=== PATIENT | female | born 1965 | race American Indian/Alaskan Native ===

== ENCOUNTER 2016-12-10 18:28 | Emergency (ER) | payer BC ==
[2016-12-10] MEDS ORDERED: TORADOL IM ONE (20:05)
--- NOTE | 2016-12-10 20:14 | Emergency Department Report ---
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 Elder but does not have an appointment scheduled to December 25. Patient denies fevers/nausea/vomiting/ abdominal pain/recent injury/chest pain, shortness of breath. She denies vaginal bleeding, dysuria. ED Past Medical Hx - Past Medical History Previous Medical History?: Yes Additional medical history: back pain - Surgical History Past Surgical History?: No Additional Surgical History: c section - Social History Smoking Status: Current Every Day Smoker Substance Use Type: None - Medications Home Medications: Home Medications Medication Instructions Recorded Confirmed Last Taken Type Cyclobenzaprine [Flexeril 10mg] 10 mg PO TID PRN #30 tablet 12/11/13 Unknown Rx HYDROcodone/APAP 7.5-325 [[place] 1 each PO Q6HR PRN #20 tablet 12/11/13 Unknown Rx 7.5/325 mg] Ibuprofen [Motrin] 600 mg PO Q8H PRN #50 tablet 12/11/13 Unknown Rx Cyclobenzaprine HCl [Flexeril 5 MG 5 mg PO TID PRN #15 tab 07/01/15 Unknown Rx TAB] traMADol [Ultram 50 MG tab] 50 mg PO Q6HR PRN #20 tablet 07/01/15 Unknown Rx Diazepam 5 mg PO Q8HR #15 tablet 09/17/15 Unknown Rx Naproxen [Naprosyn TAB] 500 mg PO BID #20 tablet 09/17/15 Unknown Rx Diclofenac Potassium 50 mg PO BID #40 tablet 12/10/16 Unknown Rx tiZANidine [Zanaflex] 4 mg PO BID #30 tablet 12/10/16 Unknown Rx ED Review of Systems ROS: Stated complaint: LFT ARM/LEG PN/R UPPER/LOWER BACK Other details as noted in HPI Constitutional: denies: chills, fever Eyes: denies: eye pain, eye discharge, vision change ENT: denies: ear pain, throat pain Respiratory: denies: cough, shortness of breath, wheezing Cardiovascular: denies: chest pain, palpitations Endocrine: no symptoms reported Gastrointestinal: denies: abdominal pain, nausea, diarrhea Genitourinary: denies: urgency, dysuria, discharge Musculoskeletal: denies: back pain, joint swelling, arthralgia Skin: denies: rash, lesions Neurological: denies: headache, weakness, paresthesias Psychiatric: denies: anxiety, depression Hematological/Lymphatic: denies: easy bleeding, easy bruising Physical Exam - Physical Exam Vital Signs: Vital Signs 12/10/16 18:33 Temperature 98.4 F Pulse Rate 72 Respiratory 20 Rate O2 Sat by Pulse 100 Oximetry Physical Exam: GENERAL: Alert and oriented x3, no apparent distress, Normal Gait, atraumatic. HEAD: Head is normocephalic and a-traumatic. EYES: Extra ocular muscles are intact. Pupils are equal, round, and reactive to light and accommodation. NECK: Supple. Non edematous No lymphadenopathy or thyromegaly. No C-spine tenderness LUNGS: Symetrical with respiration, No wheezing, no rales or crackles, CTAB. HEART: S1, S2 present, regular rate and rhythm without murmur, no rubs, no gallops. Non tender to palpation ABDOMEN: No organomegaly was noted,Positive bowel sounds, soft, and non- distended. . Nontender to palpation on all Quadrants, NO CVA tenderness. BACK: full ROM, tenderness to palpation of her right latissimus dorsi muscles. EXTREMITIES/MUSCULOSKELETAL: No cyanosis, clubbing, rash, lesions or edema. Full ROM bilaterally. UE/LE Pulses 2+ bilaterally. LE and UE 5+ strength bilaterally, straight leg raise negative bilaterally. No calf tenderness bilaterally. NEUROLOGIC: The patient is cooperative with no focal neurologic deficits. Cranial nerves II through XII are grossly intact. Normal speech. PSYCHIATRIC: Mood is congruent with affect, denies suicidal or homicidal ideations. SKIN: Warm and dry, No lesions, No ulceration or induration present. ED Course Vital Signs 12/10/16 18:33 Temperature 98.4 F Pulse Rate 72 Respiratory 20 Rate O2 Sat by Pulse 100 Oximetry ED Medical Decision Making - Medical Decision Making This is a 51 year-old female presents to ED with ED course: Patient received Toradol and ED. Urinalysis is ordered. Urinalysis is negative Discussed his findings with patient. Discussed the patient will go home on trial of muscle relaxers and pain medication Discussed the patient and keep her appointment with Dr. Elder. Discussed patient get some rest, monitor blood pressure and discuss blood pressure management with her Dr. Elder. Patient states she does not have a history of blood pressure. Discussed the patient and get appropriate redness use heat pads as needed for back muscles. Patient states she understands instructions and will follow-up Pt is in no acute distress. Vital signs are normal Critical care attestation.: If time is entered above; I have spent that time in minutes in the direct care of this critically ill patient, excluding procedure time. ED Disposition Clinical Impression: Myalgia, Spasm of back muscles Disposition: TO HOME OR SELFCARE Is pt being admited?: No Does the pt Need Aspirin: No Condition: Stable Instructions: Trigger Point Pain (ED), Musculoskeletal Pain (ED), Heat Pack Application (ED) Additional Instructions: No heavy lifting. Follow-up which her primary care physician. Prescriptions: Diclofenac Potassium 50 mg PO BID #40 tablet tiZANidine [Zanaflex] 4 mg PO BID #30 tablet Referrals: PRIMARY CAREMD [Primary Care Provider] - 3-5 Days JOSE ZUNIGA MD [Staff Physician] - 3-5 Days [facility] [Outside] - 3-5 Days [facility] [Outside] - 3-5 Days [facility] [Outside] - 3-5 Days Forms: Work/School Release Form Time of Disposition: 21:45
[2016-12-10 21:06] LABS: Bilirubin,Urine NEG (Negative); Blood,Urine MOD (Negative); Ketones,Urine TR mg/dL (Negative); Leukocyte Esterase,Urine NEG (Negative); Mucus,Urine 3+ /HPF; Nitrite,Urine NEG (Negative); Protein,Urine <15 mg/dL mg/dL (Negative); Urobilinogen,Urine < 2.0 mg/dL (<2.0)
== END 2016-12-10 22:08 | disposition home or self-care (01) ==
LOC: ED 18:28
DX: M62.830 Muscle spasm of back (principal); M79.1 Myalgia; F17.200 Nicotine dependence, unspecified, uncomplicated
CPT/HCPCS: 81001; 96372; 99283; J1885

== ENCOUNTER 2018-01-27 10:34 | Emergency (ER) | payer BC ==
[2018-01-27] MEDS ORDERED: MORPHINE IV ONE (11:17)
[2018-01-27] MEDS ORDERED: ZOFRAN IV ONE (11:17)
[2018-01-27 11:20] VITALS: BP 183/103
[2018-01-27 12:04] LABS: Basophils % (Auto) 0.7 % (0.0-1.8); Eosinophils # (Auto) 0.1 K/mm3 (0.0-0.4); Eosinophils % (Auto) 2.6 % (0.0-4.3); Hematocrit 43.3 % (30.3-42.9); Hemoglobin 14.5 gm/dl (10.1-14.3); Lymphocytes # (Auto) 1.8 K/mm3 (1.2-5.4); Lymphocytes % (Auto) 30.8 % (13.4-35.0); Mean Corpuscular HGB Conc 34 % (30-34); Mean Corpuscular Hemoglobin 31 pg (28-32); Mean Corpuscular Volume 92 fl (79-97); Monocytes # (Auto) 0.4 K/mm3 (0.0-0.8); Monocytes % (Auto) 6.7 % (0.0-7.3); Platelet Count 266 K/mm3 (140-440); Red Blood Count 4.71 M/mm3 (3.65-5.03); Red Cell Distribution Width 12.9 % (13.2-15.2)
[2018-01-27 12:12] LABS: INR 0.95 (0.87-1.13)
[2018-01-27 12:13] LABS: Partial Thromboplastin Time 28.1 Sec. (24.2-36.6)
[2018-01-27 12:23] LABS: Alanine Aminotransferase 8 units/L (7-56); BUN/Creatinine Ratio 25; Blood Urea Nitrogen 15 mg/dL (7-17); Calcium 9.6 mg/dL (8.4-10.2); Hemolysis Index 64
[2018-01-27 12:28] LABS: Bilirubin,Direct < 0.2 mg/dL (0-0.2)
[2018-01-27 12:29] LABS: Creatine Kinase MB < 1.0 ng/mL (0.0-4.0)
--- NOTE | 2018-01-27 15:07 | Emergency Department Report ---
ED General Adult HPI - General Chief complaint: Extremity Injury, Upper Stated complaint: LEFT ARM PAIN Time Seen by Provider: 01/27/18 11:07 Source: patient Mode of arrival: Ambulatory Limitations: No Limitations - History of Present Illness Initial comments: This is a 52-year-old lady that was here at this hospital. She tells me she's had severe right shoulder pain for 4 days. She was seen in the emergency department yesterday. She was given a variety of analgesic/muscle relaxant. She states the pain is really persistent and she has limited mobility of the shoulder. The pain worsens on movement. She's had no fever or chills. She has made an appointment to see Dr. Russell next week. An MRI is contemplated. Review of her x-ray yesterday did reveal likely calcific tendinitis. Certainly rotator cuff injury could not be excluded without an MRI. -: Gradual, days(s) Location: right, upper extremity Radiation: non-radiation Quality: aching Consistency: constant Improves with: none Worsens with: movement Associated Symptoms: denies other symptoms Treatments Prior to Arrival: other (seen in the emergency department yesterday) - Related Data Previous Rx's Medication Instructions Recorded Last Taken Type Cyclobenzaprine [Flexeril 10mg] 10 mg PO TID PRN #30 tablet 12/11/13 Unknown Rx HYDROcodone/APAP 7.5-325 [[place] 1 each PO Q6HR PRN #20 tablet 12/11/13 Unknown Rx 7.5/325 mg] Ibuprofen [Motrin] 600 mg PO Q8H PRN #50 tablet 12/11/13 Unknown Rx Cyclobenzaprine HCl [Flexeril 5 MG 5 mg PO TID PRN #15 tab 07/01/15 Unknown Rx TAB] traMADol [Ultram 50 MG tab] 50 mg PO Q6HR PRN #20 tablet 07/01/15 Unknown Rx Naproxen [Naprosyn TAB] 500 mg PO BID #20 tablet 09/17/15 Unknown Rx diazePAM [Diazepam] 5 mg PO Q8HR #15 tablet 09/17/15 Unknown Rx Diclofenac Potassium 50 mg PO BID #40 tablet 12/10/16 Unknown Rx tiZANidine [Zanaflex] 4 mg PO BID #30 tablet 12/10/16 Unknown Rx Ibuprofen [Motrin] 800 mg PO Q8HR PRN #20 tablet 01/23/18 Unknown Rx methOCARBAMOL [Robaxin TAB] 500 mg PO Q6H PRN #15 tablet 01/23/18 Unknown Rx traMADol [Ultram] 50 mg PO Q6HR PRN #12 tablet 01/23/18 Unknown Rx Allergies Allergy/AdvReac Type Severity Reaction Status Date / Time No Known Allergies Allergy Verified 12/10/16 18:33 ED Review of Systems ROS: Stated complaint: LEFT ARM PAIN Other details as noted in HPI Constitutional: denies: chills, fever Eyes: denies: eye pain, eye discharge, vision change ENT: denies: ear pain, throat pain Respiratory: denies: cough, shortness of breath, wheezing Cardiovascular: denies: chest pain, palpitations Endocrine: no symptoms reported Gastrointestinal: denies: abdominal pain, nausea, diarrhea Genitourinary: denies: urgency, dysuria, discharge Musculoskeletal: as per HPI. denies: back pain, joint swelling Skin: denies: rash, lesions Neurological: denies: headache, weakness, paresthesias Psychiatric: denies: anxiety, depression Hematological/Lymphatic: denies: easy bleeding, easy bruising ED Past Medical Hx - Past Medical History Previous Medical History?: Yes Additional medical history: back pain - Surgical History Past Surgical History?: Yes Additional Surgical History: c section - Social History Smoking Status: Current Every Day Smoker Substance Use Type: Alcohol - Medications Home Medications: Home Medications Medication Instructions Recorded Confirmed Last Taken Type Cyclobenzaprine [Flexeril 10mg] 10 mg PO TID PRN #30 tablet 12/11/13 Unknown Rx HYDROcodone/APAP 7.5-325 [[place] 1 each PO Q6HR PRN #20 tablet 12/11/13 Unknown Rx 7.5/325 mg] Ibuprofen [Motrin] 600 mg PO Q8H PRN #50 tablet 12/11/13 Unknown Rx Cyclobenzaprine HCl [Flexeril 5 MG 5 mg PO TID PRN #15 tab 07/01/15 Unknown Rx TAB] traMADol [Ultram 50 MG tab] 50 mg PO Q6HR PRN #20 tablet 07/01/15 Unknown Rx Naproxen [Naprosyn TAB] 500 mg PO BID #20 tablet 09/17/15 Unknown Rx diazePAM [Diazepam] 5 mg PO Q8HR #15 tablet 09/17/15 Unknown Rx Diclofenac Potassium 50 mg PO BID #40 tablet 12/10/16 Unknown Rx tiZANidine [Zanaflex] 4 mg PO BID #30 tablet 12/10/16 Unknown Rx Ibuprofen [Motrin] 800 mg PO Q8HR PRN #20 tablet 01/23/18 Unknown Rx methOCARBAMOL [Robaxin TAB] 500 mg PO Q6H PRN #15 tablet 01/23/18 Unknown Rx traMADol [Ultram] 50 mg PO Q6HR PRN #12 tablet 01/23/18 Unknown Rx ED Physical Exam - General Limitations: No Limitations General appearance: alert, in no apparent distress - Head Head exam: Present: atraumatic, normocephalic - Eye Eye exam: Present: normal appearance, PERRL, EOMI. Absent: scleral icterus - ENT ENT exam: Present: mucous membranes moist - Neck Neck exam: Present: normal inspection. Absent: tenderness, meningismus - Respiratory Respiratory exam: Present: normal lung sounds bilaterally. Absent: respiratory distress - Cardiovascular Cardiovascular Exam: Present: regular rate, normal rhythm. Absent: systolic murmur, diastolic murmur, rubs, gallop - GI/Abdominal GI/Abdominal exam: Present: soft, rigid, normal bowel sounds. Absent: distended , tenderness, guarding, rebound - Extremities Exam Extremities exam: Present: other (patient has limited movement of her right shoulder it is tender. There is no warmth on palpation of the joint. ) - Back Exam Back exam: Present: normal inspection - Neurological Exam Neurological exam: Present: alert, oriented X3, CN II-XII intact. Absent: motor sensory deficit - Psychiatric Psychiatric exam: Present: normal affect, normal mood - Skin Skin exam: Present: warm, dry, intact, normal color. Absent: rash ED Course Vital Signs 01/27/18 01/27/18 10:43 11:20 Temperature 98.1 F Pulse Rate 104 H 80 Respiratory 18 16 Rate Blood Pressure 190/122 Blood Pressure 183/103 [Left] O2 Sat by Pulse 97 96 Oximetry - Reevaluation(s) Reevaluation #1: I spoke to Dr. Russell. He was kind to agree to see the patient in the office now. 01/27/18 15:07 ED Medical Decision Making - Lab Data Result diagrams: 01/27/18 11:47 01/27/18 11:47 Laboratory Results - last 24 hr 01/27/18 01/27/18 01/27/18 11:47 11:47 11:47 WBC 5.8 RBC 4.71 Hgb 14.5 H Hct 43.3 H MCV 92 MCH 31 MCHC 34 RDW 12.9 L Plt Count 266 Lymph % (Auto) 30.8 [place] % (Auto) 6.7 Eos % (Auto) 2.6 Baso % (Auto) 0.7 Lymph # 1.8 [place] # 0.4 Eos # 0.1 Baso # 0.0 Seg Neutrophils % 59.2 Seg Neutrophils # 3.4 PT 13.1 INR 0.95 APTT 28.1 Sodium 136 L Potassium 4.2 Chloride 95.9 L Carbon Dioxide 24 Anion Gap 20 BUN 15 Creatinine 0.6 L Estimated GFR > 60 BUN/Creatinine Ratio 25 Glucose 80 Lactic Acid Calcium 9.6 Total Bilirubin 0.30 Direct Bilirubin < 0.2 Indirect Bilirubin 0.1 AST 14 ALT 8 Alkaline Phosphatase 91 Total Creatine Kinase 70 CK-MB (CK-2) < 1.0 CK-MB (CK-2) Rel Index 1.4 Total Protein 7.9 Albumin 4.0 Albumin/Globulin Ratio 1.0 01/27/18 11:47 WBC RBC Hgb Hct MCV MCH MCHC RDW Plt Count Lymph % (Auto) [place] % (Auto) Eos % (Auto) Baso % (Auto) Lymph # [place] # Eos # Baso # Seg Neutrophils % Seg Neutrophils # PT INR APTT Sodium Potassium Chloride Carbon Dioxide Anion Gap BUN Creatinine Estimated GFR BUN/Creatinine Ratio Glucose Lactic Acid 0.90 Calcium Total Bilirubin Direct Bilirubin Indirect Bilirubin AST ALT Alkaline Phosphatase Total Creatine Kinase CK-MB (CK-2) CK-MB (CK-2) Rel Index Total Protein Albumin Albumin/Globulin Ratio - Radiology Data Radiology results: report reviewed (previous x-ray report reviewed) Critical care attestation.: If time is entered above; I have spent that time in minutes in the direct care of this critically ill patient, excluding procedure time. ED Disposition Clinical Impression: Calcific tendinitis Disposition: DC- TO HOME OR SELFCARE Is pt being admited?: No Does the pt Need Aspirin: No Condition: Stable Instructions: Tendinitis (ED) Additional Instructions: See Dr. Russell now for further treatment. Referrals: PRIMARY CARE, [Primary Care Provider] - 3-5 Days Time of Disposition: 15:08
== END 2018-01-27 15:17 | disposition home or self-care (01) ==
LOC: ED 10:34 → EEVIPCON 10:34 → ED 15:17
DX: M75.31 Calcific tendinitis of right shoulder (principal); F17.200 Nicotine dependence, unspecified, uncomplicated
CPT/HCPCS: 36415; 80048; 80074; 82140; 82550; 82553; 85025; 85610; 85730; 96374; 96375; 99284; J2270; J2405

== ENCOUNTER 2018-02-12 15:37 | Outpatient (CLI) | payer BC ==
--- NOTE | 2018-02-13 08:06 | Magnetic Resonance Report ---
MRI UPPER EXTREMITY JOINT RIGHT WITHOUT CONTRAST History: Pain in right shoulder. Technique: Multisequence, multiplanar MRI without contrast. Comparison: Right shoulder films dated 01/23/18. Findings: Right shoulder films were consistent with calcific tendinitis of the supraspinatus tendon. MRI demonstrates mild diffuse thickening and increased signal in the supraspinatus tendon consistent with tendinosis. The calcifications are poorly demonstrated on MR. No full-thickness defect is detected. A focal full thickness tear is identified in the infraspinatus tendon which is best demonstrated on coronal T2 fat sat image 7. This defect measures 3-4 mm diameter. The supraspinatus tendon and teres minor tendons are intact. The biceps tendon and its anchor upon the superior labrum is intact. No gross labral defect although arthrogram was not performed. Trace joint effusion and fluid in the sub-deltoid bursa is noted. The bony signal is within normal limits. No evidence for fracture, bone lesion or significant degenerative changes. IMPRESSION: Calcific tendinitis of the distal supraspinatus tendon. Focal full thickness tear in the infraspinatus tendon as described. Trace joint effusion and bursal fluid.
== END 2018-02-12 15:38 | disposition home or self-care (01) ==
LOC: MRI 15:37
PROVIDERS: ATTEND Orthopaedic Surgery
DX: M75.31 Calcific tendinitis of right shoulder (principal); Z87.891 Personal history of nicotine dependence

== ENCOUNTER 2018-11-03 11:05 | Outpatient (CLI) | payer BC ==
[2018-11-03 11:34] LABS: Hematocrit 43.5 % (30.3-42.9); Hemoglobin 14.7 gm/dl (10.1-14.3); Mean Corpuscular HGB Conc 34 % (30-34); Mean Corpuscular Volume 93 fl (79-97); Platelet Count 275 K/mm3 (140-440); Red Blood Count 4.68 M/mm3 (3.65-5.03); Red Cell Distribution Width 13.8 % (13.2-15.2)
[2018-11-03 12:19] LABS: Alanine Aminotransferase 6 units/L (7-56); Albumin 4.4 g/dL (3.9-5); BUN/Creatinine Ratio 27; Blood Urea Nitrogen 19 mg/dL (7-17); Calcium 9.8 mg/dL (8.4-10.2); Chol/HDL Ratio 3.61 %; HDL Cholesterol 59 mg/dL (40-59); Hemolysis Index 1; LDL Cholesterol,Direct 145 mg/dL (50-130)
--- NOTE | 2018-11-03 14:45 | XRay Report ---
LUMBOSACRAL SPINE, FIVE VIEWS: HISTORY: Low back pain. Views of the lumbosacral spine demonstrate normal bony alignment, vertebral height and interspace distances. Oblique views show patent foramina and normal apophyseal joint alignment. IMPRESSION: Lumbar spine within normal limits.
[2018-11-06 11:19] LABS: Vitamin D, 25-OH, D2 <4 ng/mL
== END 2018-11-03 11:06 | disposition home or self-care (01) ==
LOC: LAB 11:05
PROVIDERS: ATTEND Internal Medicine
DX: M54.5 Low back pain (principal); E78.2 Mixed hyperlipidemia; E11.65 Type 2 diabetes mellitus with hyperglycemia; E53.9 Vitamin B deficiency, unspecified; R53.83 Other fatigue
CPT/HCPCS: 36415; 72110; 80053; 80061; 82306; 83036; 84443; 85027

== ENCOUNTER 2019-08-11 19:41 | Emergency (ER) | payer BC ==
[2019-08-11] MEDS ORDERED: IPRATROPIUM/ALBUTEROL SULFATE 3 ML AMPUL.NEB IH ONE (20:15)
--- NOTE | 2019-08-11 20:15 | Emergency Department Report ---
Blank Doc - Documentation Documentation: This is a 54-year-old female that presents with SOB, wheezing, and cough. This initial assessment/diagnostic orders/clinical plan/treatment(s) is/are subject to change based on patient's health status, clinical progression and re- assessment by fellow clinical providers in the ED. Further treatment and workup at subsequent clinical providers discretion. Patient/guardians urged not to elope from the ED as their condition may be serious if not clinically assessed and managed. Initial orders include: 1- Patient sent to [facility] for further evaluation and treatment 2- CXR 3- breathing treatment
--- NOTE | 2019-08-11 20:52 | XRay Report ---
CHEST 2 VIEWS INDICATION / CLINICAL INFORMATION: Dyspnea and wheezing. COMPARISON: Chest radiograph 03/14/2015 FINDINGS: SUPPORT DEVICES: None. HEART / MEDIASTINUM: No significant abnormality. LUNGS / PLEURA: No significant pulmonary or pleural abnormality. No pneumothorax. ADDITIONAL FINDINGS: No significant additional findings. IMPRESSION: No acute finding. Signer Name: Seymour Denise MD Signed: 08/11/2019 8:47 PM Workstation Name: [id number]
[2019-08-11] MEDS ORDERED: predniSONE 50 MG TAB PO STA (22:02)
--- NOTE | 2019-08-11 22:17 | Emergency Department Report ---
ED Asthma HPI - General Chief Complaint: Adult Asthma Stated Complaint: RESPIRATORY PROBLEMS Time Seen by Provider: 08/11/19 20:14 Source: family Mode of arrival: Ambulatory Limitations: No Limitations - History of Present Illness Initial Comments: 54-year-old female sent emerge department complaining of having cough with wheezing and was was worried she may be renetta" as the virus" she wanted to be evaluated reports no hemoptysis no no hematemesis no hematochezia does have cough with wheezing but ran out of her albuterol at home and needs a refill. Complaint: wheezing -: Gradual Context: ran out of meds Associated Symptoms: dry cough - Related Data Current Asthma Therapy: none Previous Rx's Medication Instructions Recorded Last Taken Type Cyclobenzaprine [Flexeril 10mg] 10 mg PO TID PRN #30 tablet 12/11/13 Unknown Rx HYDROcodone/APAP 7.5-325 [[place] 1 each PO Q6HR PRN #20 tablet 12/11/13 Unknown Rx 7.5/325 mg] Ibuprofen [Motrin] 600 mg PO Q8H PRN #50 tablet 12/11/13 Unknown Rx Cyclobenzaprine HCl [Flexeril 5 MG 5 mg PO TID PRN #15 tab 07/01/15 Unknown Rx TAB] traMADoL [Ultram 50 MG tab] 50 mg PO Q6HR PRN #20 tablet 07/01/15 Unknown Rx Naproxen [Naprosyn TAB] 500 mg PO BID #20 tablet 09/17/15 Unknown Rx diazePAM [Diazepam] 5 mg PO Q8HR #15 tablet 09/17/15 Unknown Rx Diclofenac Potassium 50 mg PO BID #40 tablet 12/10/16 Unknown Rx tiZANidine [Zanaflex 4mg TAB] 4 mg PO BID #30 tablet 12/10/16 Unknown Rx Ibuprofen [Motrin] 800 mg PO Q8HR PRN #20 tablet 01/23/18 Unknown Rx methOCARBAMOL [Robaxin TAB] 500 mg PO Q6H PRN #15 tablet 01/23/18 Unknown Rx traMADoL [Ultram] 50 mg PO Q6HR PRN #12 tablet 01/23/18 Unknown Rx ALBUTEROL Inhaler(NF) [VENTOLIN 2 puff IH PRN #1 inha 04/17/18 Unknown Rx Inhaler(NF)] Amoxicillin/Potassium Clav 1 each PO BID #14 tablet 04/17/18 Unknown Rx [Augmentin 500-125 Tablet] Loratadine (Nf) [Claritin] 10 mg PO DAILY #30 tablet 04/17/18 Unknown Rx predniSONE [Deltasone] 20 mg PO DAILY #5 tablet 04/17/18 Unknown Rx ALBUTEROL NEB's [Proventil 0.083% 2.5 mg IH TID PRN #30 neb 08/11/19 Unknown Rx NEBS] Albuterol Sulfate [Proair 90 mcg IH Q4HR #1 aer.pow.ba 08/11/19 Unknown Rx Respiclick] Montelukast [Singulair] 10 mg PO QPM #14 tablet 08/11/19 Unknown Rx predniSONE [Deltasone] 50 mg PO ONCE #7 tablet 08/11/19 Unknown Rx Allergies Allergy/AdvReac Type Severity Reaction Status Date / Time No Known Allergies Allergy Verified 12/10/16 18:33 ED Review of Systems ROS: Stated complaint: RESPIRATORY PROBLEMS Other details as noted in HPI Comment: All other systems reviewed and negative ED Past Medical Hx - Past Medical History Previous Medical History?: Yes Additional medical history: back pain - Surgical History Past Surgical History?: Yes Additional Surgical History: c section - Social History Smoking Status: Never Smoker Substance Use Type: None - Medications Home Medications: Home Medications Medication Instructions Recorded Confirmed Last Taken Type Cyclobenzaprine [Flexeril 10mg] 10 mg PO TID PRN #30 tablet 12/11/13 Unknown Rx HYDROcodone/APAP 7.5-325 [[place] 1 each PO Q6HR PRN #20 tablet 12/11/13 Unknown Rx 7.5/325 mg] Ibuprofen [Motrin] 600 mg PO Q8H PRN #50 tablet 12/11/13 Unknown Rx Cyclobenzaprine HCl [Flexeril 5 MG 5 mg PO TID PRN #15 tab 07/01/15 Unknown Rx TAB] traMADoL [Ultram 50 MG tab] 50 mg PO Q6HR PRN #20 tablet 07/01/15 Unknown Rx Naproxen [Naprosyn TAB] 500 mg PO BID #20 tablet 09/17/15 Unknown Rx diazePAM [Diazepam] 5 mg PO Q8HR #15 tablet 09/17/15 Unknown Rx Diclofenac Potassium 50 mg PO BID #40 tablet 12/10/16 Unknown Rx tiZANidine [Zanaflex 4mg TAB] 4 mg PO BID #30 tablet 12/10/16 Unknown Rx Ibuprofen [Motrin] 800 mg PO Q8HR PRN #20 tablet 01/23/18 Unknown Rx methOCARBAMOL [Robaxin TAB] 500 mg PO Q6H PRN #15 tablet 01/23/18 Unknown Rx traMADoL [Ultram] 50 mg PO Q6HR PRN #12 tablet 01/23/18 Unknown Rx ALBUTEROL Inhaler(NF) [VENTOLIN 2 puff IH PRN #1 inha 04/17/18 Unknown Rx Inhaler(NF)] Amoxicillin/Potassium Clav 1 each PO BID #14 tablet 04/17/18 Unknown Rx [Augmentin 500-125 Tablet] Loratadine (Nf) [Claritin] 10 mg PO DAILY #30 tablet 04/17/18 Unknown Rx predniSONE [Deltasone] 20 mg PO DAILY #5 tablet 04/17/18 Unknown Rx ALBUTEROL NEB's [Proventil 0.083% 2.5 mg IH TID PRN #30 neb 08/11/19 Unknown Rx NEBS] Albuterol Sulfate [Proair 90 mcg IH Q4HR #1 aer.pow.ba 08/11/19 Unknown Rx Respiclick] Montelukast [Singulair] 10 mg PO QPM #14 tablet 08/11/19 Unknown Rx predniSONE [Deltasone] 50 mg PO ONCE #7 tablet 08/11/19 Unknown Rx ED Physical Exam - General Limitations: No Limitations General appearance: alert, in no apparent distress - Head Head exam: Present: atraumatic, normocephalic - Eye Eye exam: Present: normal appearance, PERRL, EOMI Pupils: Present: normal accommodation - ENT ENT exam: Present: normal exam, normal orophraynx, mucous membranes moist - Neck Neck exam: Present: normal inspection, full ROM - Respiratory Respiratory exam: Present: normal lung sounds bilaterally, wheezes (Very mild to the left lung). Absent: respiratory distress - Cardiovascular Cardiovascular Exam: Present: regular rate, normal rhythm. Absent: systolic murmur, diastolic murmur, rubs, gallop - GI/Abdominal GI/Abdominal exam: Present: soft, normal bowel sounds - Extremities Exam Extremities exam: Present: normal inspection - Back Exam Back exam: Present: normal inspection - Neurological Exam Neurological exam: Present: alert, oriented X3 - Psychiatric Psychiatric exam: Present: normal affect, normal mood - Skin Skin exam: Present: warm, dry, intact, normal color. Absent: rash ED Course Vital Signs 08/11/19 08/11/19 19:45 20:14 Temperature 98.3 F 98.3 F Pulse Rate 102 H 102 H Respiratory 20 20 Rate Blood Pressure 172/99 172/99 O2 Sat by Pulse 98 98 Oximetry Critical care attestation.: If time is entered above; I have spent that time in minutes in the direct care of this critically ill patient, excluding procedure time. ED Disposition Clinical Impression: Asthma exacerbation, Cough Disposition: DC- TO HOME OR SELFCARE Is pt being admited?: No Does the pt Need Aspirin: No Condition: Stable Instructions: Asthma (ED) Prescriptions: predniSONE [Deltasone] 50 mg PO ONCE #7 tablet Albuterol Sulfate [Proair Respiclick] 90 mcg IH Q4HR #1 aer.pow.ba ALBUTEROL NEB's [Proventil 0.083% NEBS] 2.5 mg IH TID PRN #30 neb PRN Reason: Wheezing Montelukast [Singulair] 10 mg PO QPM #14 tablet Referrals: NIKOLAS MANZANARES MD [Staff Physician] - 3-5 Days
[2019-08-12 00:07] VITALS: BP 165/97
== END 2019-08-11 23:35 | disposition home or self-care (01) ==
LOC: ED 19:41
DX: J45.901 Unspecified asthma with (acute) exacerbation (principal); Z98.890 Other specified postprocedural states; Z79.899 Other long term (current) drug therapy
CPT/HCPCS: 71046; 99283; J7512

== ENCOUNTER 2020-03-08 08:50 | Emergency (ER) | payer BC ==
[2020-03-08 09:03] VITALS: BP 153/109
[2020-03-08] MEDS ORDERED: KETOROLAC 30 MG/1 ML INJ IM ONE (10:21)
[2020-03-08] MEDS ORDERED: dexAMETHasone 20 MG/5 ML VIAL IV ONE (10:22)
[2020-03-08] MEDS ORDERED: ALBUTEROL 2.5 MG/3 ML NEBU IH ONE (10:22)
[2020-03-08] MEDS ORDERED: dexAMETHasone 20 MG/5 ML VIAL IM ONE (10:29)
--- NOTE | 2020-03-08 10:29 | Emergency Department Report ---
ED Extremity Problem HPI - General Chief complaint: Extremity Problem,Nontraumatic Stated complaint: RT LEG PAIN Time Seen by Provider: 03/08/20 10:21 Source: patient Mode of arrival: Ambulatory Limitations: No Limitations - History of Present Illness Initial comments: The patient was evaluated in the emergency department for symptoms described in the history of present illness. He/she was evaluated in the context of the global COVID-19 pandemic, which necessitated consideration that the patient might be at risk for infection with the virus that causes COVID-19. Institutional protocols and algorithms that pertain to the evaluation of patients at risk for COVID-19 are in a state of rapid change based on information released by regulatory bodies including the CDC and federal and state organizations. These policies and algorithms were followed during the patient's care in the emergency department. Please note that these policies, procedures and recommendations changed on a rapid basis. 54-year-old -[place] female presents to the emergency room for right lateral thigh pain worse with movement. Patient states that it started on Friday evening and the pain is probably and burning. Patient denies any injury. Patient reports she took ibuprofen yesterday evening. Patient also reports she has been wheezing with her bronchitis. She reports she gave herself a treatment yesterday. Patient denies any recent falls no recent travels not on control no cancers. Patient denies any chest pain or shortness of breathing. P atient denies any leg swelling or numbness. She denies any fever chills. 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 Complaint: extremity pain Location: left, other History of Same: No (Thigh) Severity scale (0 -10): 8 Quality: stabbing, aching Consistency: constant Improves with: nothing Worsens with: weight bearing, walking, palpation Associated Symptoms: denies other symptoms - Related Data Previous Rx's Medication Instructions Recorded Last Taken Type Cyclobenzaprine [Flexeril 10mg] 10 mg PO TID PRN #30 tablet 12/11/13 Unknown Rx HYDROcodone/APAP 7.5-325 [[place] 1 each PO Q6HR PRN #20 tablet 12/11/13 Unknown Rx 7.5/325 mg] Ibuprofen [Motrin] 600 mg PO Q8H PRN #50 tablet 12/11/13 Unknown Rx Cyclobenzaprine HCl [Flexeril 5 MG 5 mg PO TID PRN #15 tab 07/01/15 Unknown Rx TAB] traMADoL [Ultram 50 MG tab] 50 mg PO Q6HR PRN #20 tablet 07/01/15 Unknown Rx Naproxen [Naprosyn TAB] 500 mg PO BID #20 tablet 09/17/15 Unknown Rx diazePAM [Diazepam] 5 mg PO Q8HR #15 tablet 09/17/15 Unknown Rx Diclofenac Potassium 50 mg PO BID #40 tablet 12/10/16 Unknown Rx tiZANidine [Zanaflex 4mg TAB] 4 mg PO BID #30 tablet 12/10/16 Unknown Rx Ibuprofen [Motrin] 800 mg PO Q8HR PRN #20 tablet 01/23/18 Unknown Rx methOCARBAMOL [Robaxin TAB] 500 mg PO Q6H PRN #15 tablet 01/23/18 Unknown Rx traMADoL [Ultram] 50 mg PO Q6HR PRN #12 tablet 01/23/18 Unknown Rx ALBUTEROL Inhaler(NF) [VENTOLIN 2 puff IH PRN #1 inha 04/17/18 Unknown Rx Inhaler(NF)] Amoxicillin/Potassium Clav 1 each PO BID #14 tablet 04/17/18 Unknown Rx [Augmentin 500-125 Tablet] Loratadine (Nf) [Claritin] 10 mg PO DAILY #30 tablet 04/17/18 Unknown Rx predniSONE [Deltasone] 20 mg PO DAILY #5 tablet 04/17/18 Unknown Rx Albuterol Sulfate [Proair 90 mcg IH Q4HR #1 aer.pow.ba 08/11/19 Unknown Rx Respiclick] Montelukast [Singulair] 10 mg PO QPM #14 tablet 08/11/19 Unknown Rx predniSONE [Deltasone] 50 mg PO ONCE #7 tablet 08/11/19 Unknown Rx ALBUTEROL NEB's [Proventil 0.083% 2.5 mg IH TID PRN #1 box 03/08/20 Unknown Rx NEBS] Naproxen [Naprosyn TAB] 500 mg PO BID PRN #30 tablet 03/08/20 Unknown Rx predniSONE [Deltasone] 50 mg PO QDAY 5 Days #5 tab 03/08/20 Unknown Rx Allergies Allergy/AdvReac Type Severity Reaction Status Date / Time No Known Allergies Allergy Verified 12/10/16 18:33 ED Review of Systems ROS: Stated complaint: RT LEG PAIN Other details as noted in HPI Comment: All other systems reviewed and negative ED Past Medical Hx - Past Medical History Previous Medical History?: Yes Hx Hypertension: Yes Additional medical history: back pain - Surgical History Past Surgical History?: Yes Additional Surgical History: c section - Social History Smoking Status: Never Smoker Substance Use Type: None - Medications Home Medications: Home Medications Medication Instructions Recorded Confirmed Last Taken Type Cyclobenzaprine [Flexeril 10mg] 10 mg PO TID PRN #30 tablet 12/11/13 Unknown Rx HYDROcodone/APAP 7.5-325 [[place] 1 each PO Q6HR PRN #20 tablet 12/11/13 Unknown Rx 7.5/325 mg] Ibuprofen [Motrin] 600 mg PO Q8H PRN #50 tablet 12/11/13 Unknown Rx Cyclobenzaprine HCl [Flexeril 5 MG 5 mg PO TID PRN #15 tab 07/01/15 Unknown Rx TAB] traMADoL [Ultram 50 MG tab] 50 mg PO Q6HR PRN #20 tablet 07/01/15 Unknown Rx Naproxen [Naprosyn TAB] 500 mg PO BID #20 tablet 09/17/15 Unknown Rx diazePAM [Diazepam] 5 mg PO Q8HR #15 tablet 09/17/15 Unknown Rx Diclofenac Potassium 50 mg PO BID #40 tablet 12/10/16 Unknown Rx tiZANidine [Zanaflex 4mg TAB] 4 mg PO BID #30 tablet 12/10/16 Unknown Rx Ibuprofen [Motrin] 800 mg PO Q8HR PRN #20 tablet 01/23/18 Unknown Rx methOCARBAMOL [Robaxin TAB] 500 mg PO Q6H PRN #15 tablet 01/23/18 Unknown Rx traMADoL [Ultram] 50 mg PO Q6HR PRN #12 tablet 01/23/18 Unknown Rx ALBUTEROL Inhaler(NF) [VENTOLIN 2 puff IH PRN #1 inha 04/17/18 Unknown Rx Inhaler(NF)] Amoxicillin/Potassium Clav 1 each PO BID #14 tablet 04/17/18 Unknown Rx [Augmentin 500-125 Tablet] Loratadine (Nf) [Claritin] 10 mg PO DAILY #30 tablet 04/17/18 Unknown Rx predniSONE [Deltasone] 20 mg PO DAILY #5 tablet 04/17/18 Unknown Rx Albuterol Sulfate [Proair 90 mcg IH Q4HR #1 aer.pow.ba 08/11/19 Unknown Rx Respiclick] Montelukast [Singulair] 10 mg PO QPM #14 tablet 08/11/19 Unknown Rx predniSONE [Deltasone] 50 mg PO ONCE #7 tablet 08/11/19 Unknown Rx ALBUTEROL NEB's [Proventil 0.083% 2.5 mg IH TID PRN #1 box 03/08/20 Unknown Rx NEBS] Naproxen [Naprosyn TAB] 500 mg PO BID PRN #30 tablet 03/08/20 Unknown Rx predniSONE [Deltasone] 50 mg PO QDAY 5 Days #5 tab 03/08/20 Unknown Rx ED Physical Exam - General Limitations: No Limitations General appearance: alert, in distress - Head Head exam: Present: atraumatic, normocephalic - Eye Eye exam: Present: normal appearance - ENT ENT exam: Present: mucous membranes moist, normal external ear exam - Neck Neck exam: Present: normal inspection, full ROM - Respiratory Respiratory exam: Present: wheezes, rhonchi - Cardiovascular Cardiovascular Exam: Present: regular rate, normal rhythm. Absent: systolic murmur, diastolic murmur, rubs, gallop - GI/Abdominal GI/Abdominal exam: Present: soft, normal bowel sounds - Expanded Lower Extremity Exam Right Hip exam: Present: full ROM, tenderness Upper Leg exam: Present: tenderness. Absent: swelling, abrasion, laceration, crepidus, dislocation Knee exam: Present: normal inspection, full ROM Lower Leg exam: Present: normal inspection, full ROM Ankle exam: Present: normal inspection, full ROM Foot/Toe exam: Present: normal inspection, full ROM Neuro vascular tendon exam: Present: no vascular compromise ED Course Vital Signs 03/08/20 09:02 Temperature 98.3 F Pulse Rate 89 Respiratory 16 Rate Blood Pressure 153/109 [Right] O2 Sat by Pulse 98 Oximetry - Reevaluation(s) Reevaluation #1: 03/08/20 11:25 Patient's been reevaluated by this provider states that her pain has improved with the medication. ED Medical Decision Making - Medical Decision Making 54-year-old -[place] female presents to the emergency room for right lateral thigh pain worse with movement. Patient states that it started on Friday evening and the pain is probably and burning. Patient denies any injury. Patient reports she took ibuprofen yesterday evening. Patient also reports she has been wheezing with her bronchitis. She reports she gave herself a treatment yesterday. Patient denies any recent falls no recent travels not on control no cancers. Patient denies any chest pain or shortness of breathing. Patient denies any leg swelling or numbness. She denies any fever chills. She does work here at the hospital. Patient be given albuterol 5 mg inhalation, dexamethasone 10 mg IM and Toradol 30 mg IM. Patient will be reevaluated. Patient's symptoms have improved after having medications. Discussed with patient I will discharge her home on prednisone naproxen and albuterol nebs solution. Instructed patient to follow-up with a primary care provider. Patient is able to verbalize understanding. Patient be given a handout for sciatica stretches. Critical care attestation.: If time is entered above; I have spent that time in minutes in the direct care of this critically ill patient, excluding procedure time. ED Disposition Clinical Impression: Sciatica, Wheezy bronchitis Disposition: TO HOME OR SELFCARE Is pt being admited?: No Does the pt Need Aspirin: No Condition: Stable Instructions: Chronic Bronchitis (ED) Additional Instructions: Please complete your prednisone take your naproxen as needed usual nebulizer treatment as needed. Try to do the sciatica stretches and to follow-up with the primary care provider in the next 3 to 5 days. Prescriptions: predniSONE [Deltasone] 50 mg PO QDAY 5 Days #5 tab Naproxen [Naprosyn TAB] 500 mg PO BID PRN #30 tablet PRN Reason: Pain , Severe (7-10) ALBUTEROL NEB's [Proventil 0.083% NEBS] 2.5 mg IH TID PRN #1 box PRN Reason: Wheezing Referrals: MERCEDEZ PADGETT MD [Staff Physician] - 3-5 Days Forms: Work/School Release Form(ED)
== END 2020-03-08 11:42 | disposition home or self-care (01) ==
LOC: ED 08:50
DX: M54.31 Sciatica, right side (principal); J40 Bronchitis, not specified as acute or chronic; I10 Essential (primary) hypertension; Z79.899 Other long term (current) drug therapy
CPT/HCPCS: 94640; 96372; 99282; J1100; J1885; 94644

== ENCOUNTER 2020-07-28 13:04 | Outpatient (CLI) | payer BC ==
[2020-07-28 14:08] LABS: Hemoglobin 13.4 gm/dl (10.1-14.3); Mean Corpuscular HGB Conc 33 % (30-34); Mean Corpuscular Volume 91 fl (79-97); Platelet Count 253 K/mm3 (140-440); Red Blood Count 4.39 M/mm3 (3.65-5.03); Red Cell Distribution Width 13.7 % (13.2-15.2)
--- NOTE | 2020-07-28 14:27 | Mammography Report ---
DIGITAL SCREENING MAMMOGRAM WITH CAD, 07/28/2020 CLINICAL INFORMATION / INDICATION: Routine screening mammography. TECHNIQUE: Digital bilateral 2D mammography was obtained in the craniocaudal and mediolateral obliqu e projections. This examination was interpreted with the benefit of Computer-Aided Detection analysis . COMPARISON: 03/14/2015 FINDINGS: Breast Density: There are scattered areas of fibroglandular density. No dominant mass, suspicious calcifications, or architectural distortion in either breast. No interval change. IMPRESSION: No mammographic evidence of malignancy. Follow up recommendation: Routine yearly BI-RADS Category 1: Negative. A "normal" or negative report should not discourage follow up or biopsy of a clinically significant f inding. A written summary of these findings will be mailed to the patient. The patient will be entered into a mammography reporting system which will generate a reminder letter for the patient's next appointmen t at the appropriate interval. The [employer] recommends yearly mammograms starting at age 40 and continuing as l rahul as a woman is in good health. Breast MRI is recommended for women with an approximate 20-25% or greater lifetime risk of breast cancer, including women with a strong family history of breast or ova kristy cancer or who have been treated for Hodgkin's disease. Signer Name: Sejal Wang MD Signed: 07/28/2020 2:23 PM Workstation Name: [id number]
[2020-07-28 14:45] LABS: Alanine Aminotransferase 116 units/L (7-56); Albumin 4.1 g/dL (3.9-5); BUN/Creatinine Ratio 18; Blood Urea Nitrogen 14 mg/dL (7-17); Calcium 9.3 mg/dL (8.4-10.2); Hemolysis Index 5
== END 2020-07-28 13:05 | disposition home or self-care (01) ==
LOC: MAMMO 13:04
PROVIDERS: ATTEND Internal Medicine
DX: Z12.31 Encounter for screening mammogram for malignant neoplasm of breast (principal); Z00.00 Encounter for general adult medical examination without abnormal findings; R53.83 Other fatigue; E78.2 Mixed hyperlipidemia; E11.65 Type 2 diabetes mellitus with hyperglycemia; E55.9 Vitamin D deficiency, unspecified; R73.09 Other abnormal glucose
CPT/HCPCS: 36415; 77067; 80053; 82652; 83036; 84443; 84590; 85027

== ENCOUNTER 2020-08-12 13:47 | Emergency (ER) | payer BC ==
[2020-08-12] MEDS ORDERED: ASPIRIN 325 MG TAB PO ONE (14:11)
[2020-08-12 14:39] LABS: Basophils # (Auto) 0.1 K/mm3 (0.0-0.1); Basophils % (Auto) 0.7 % (0.0-1.8); Eosinophils # (Auto) 0.2 K/mm3 (0.0-0.4); Eosinophils % (Auto) 2.6 % (0.0-4.3); Hematocrit 40.1 % (30.3-42.9); Hemoglobin 13.3 gm/dl (10.1-14.3); Lymphocytes # (Auto) 2.9 K/mm3 (1.2-5.4); Lymphocytes % (Auto) 37.4 % (13.4-35.0); Mean Corpuscular HGB Conc 33 % (30-34); Mean Corpuscular Volume 93 fl (79-97); Monocytes # (Auto) 0.6 K/mm3 (0.0-0.8); Platelet Count 238 K/mm3 (140-440); Red Cell Distribution Width 13.4 % (13.2-15.2)
--- NOTE | 2020-08-12 14:43 | XRay Report ---
CHEST 1 VIEW 08/12/2020 2:15 PM INDICATION / CLINICAL INFORMATION: chest pain. COMPARISON: 08/11/2019. FINDINGS: SUPPORT DEVICES: None. HEART / MEDIASTINUM: No significant abnormality. LUNGS / PLEURA: No significant pulmonary or pleural abnormality. No pneumothorax. ADDITIONAL FINDINGS: No significant additional findings. IMPRESSION: No acute cardiopulmonary abnormality. Signer Name: Dedrick Ness MD Signed: 08/12/2020 2:39 PM Workstation Name: [id number]
[2020-08-12] MEDS ORDERED: MORPHINE 2 MG/1 ML INJ IV ONE (14:46)
[2020-08-12 14:52] LABS: INR 0.95 (0.87-1.13); Partial Thromboplastin Time 28.8 Sec. (24.2-36.6)
[2020-08-12 15:01] LABS: Blood Urea Nitrogen 11 mg/dL (7-17); Calcium 8.7 mg/dL (8.4-10.2); Hemolysis Index 5
[2020-08-12 15:24] LABS: BUN/Creatinine Ratio 18
[2020-08-12] MEDS ORDERED: POTASSIUM CHLORIDE ER 20 MEQ TAB PO ONE ×2 (15:30→17:42)
--- NOTE | 2020-08-12 15:30 | Emergency Department Report ---
ED Chest Pain HPI - General Chief Complaint: Chest Pain Stated Complaint: LT SIDE NUMB/SOB Time Seen by Provider: 08/12/20 14:11 Source: patient Mode of arrival: Ambulatory Limitations: No Limitations - History of Present Illness Initial Comments: 55-year-old female, history of hypertension, presents to ED with chest x2 days. Patient states pain is located in the left chest. States it feels like tightness, with associated numbness in the left arm. Patient denies any radiation of the pain. Patient states pain is worse with breathing, movement, coughing. Patient reports some mild shortness of breath and a mild cough. She denies any fever, leg pain or swelling. Patient denies any nausea, vomiting, diaphoresis. Patient reports she has not taken her blood pressure medication in the last 2 days. Patient reports tobacco use. PCP Dr. Stacy ESCOBAR Complaint: chest pain -: days(s) (2) Onset: during rest Pain Location: left chest Pain Radiation: none Severity: moderate Severity scale (0 -10): 10 Quality: tightness Consistency: intermittent Improves With: nothing Worsens With: inspiration, movement re: dyspnea. denies: nausea, vomting, diaphoresis Other Symptoms: denies: cough, fever, leg swelling - Related Data Previous Rx's Medication Instructions Recorded Last Taken Type Cyclobenzaprine [Flexeril 10mg] 10 mg PO TID PRN #30 tablet 12/11/13 Unknown Rx HYDROcodone/APAP 7.5-325 [[place] 1 each PO Q6HR PRN #20 tablet 12/11/13 Unknown Rx 7.5/325 mg] Ibuprofen [Motrin] 600 mg PO Q8H PRN #50 tablet 12/11/13 Unknown Rx Cyclobenzaprine HCl [Flexeril 5 MG 5 mg PO TID PRN #15 tab 07/01/15 Unknown Rx TAB] traMADoL [Ultram 50 MG tab] 50 mg PO Q6HR PRN #20 tablet 07/01/15 Unknown Rx Naproxen [Naprosyn TAB] 500 mg PO BID #20 tablet 09/17/15 Unknown Rx diazePAM [Diazepam] 5 mg PO Q8HR #15 tablet 09/17/15 Unknown Rx Diclofenac Potassium 50 mg PO BID #40 tablet 12/10/16 Unknown Rx tiZANidine [Zanaflex 4mg TAB] 4 mg PO BID #30 tablet 12/10/16 Unknown Rx Ibuprofen [Motrin] 800 mg PO Q8HR PRN #20 tablet 01/23/18 Unknown Rx methOCARBAMOL [Robaxin TAB] 500 mg PO Q6H PRN #15 tablet 01/23/18 Unknown Rx traMADoL [Ultram] 50 mg PO Q6HR PRN #12 tablet 01/23/18 Unknown Rx ALBUTEROL Inhaler(NF) [VENTOLIN 2 puff IH PRN #1 inha 04/17/18 Unknown Rx Inhaler(NF)] Amoxicillin/Potassium Clav 1 each PO BID #14 tablet 04/17/18 Unknown Rx [Augmentin 500-125 Tablet] Loratadine (Nf) [Claritin] 10 mg PO DAILY #30 tablet 04/17/18 Unknown Rx predniSONE [Deltasone] 20 mg PO DAILY #5 tablet 04/17/18 Unknown Rx Albuterol Sulfate [Proair 90 mcg IH Q4HR #1 aer.pow.ba 08/11/19 Unknown Rx Respiclick] Montelukast [Singulair] 10 mg PO QPM #14 tablet 08/11/19 Unknown Rx predniSONE [Deltasone] 50 mg PO ONCE #7 tablet 08/11/19 Unknown Rx ALBUTEROL NEB's [Proventil 0.083% 2.5 mg IH TID PRN #1 box 03/08/20 Unknown Rx NEBS] Naproxen [Naprosyn TAB] 500 mg PO BID PRN #30 tablet 03/08/20 Unknown Rx predniSONE [Deltasone] 50 mg PO QDAY 5 Days #5 tab 03/08/20 Unknown Rx Allergies Allergy/AdvReac Type Severity Reaction Status Date / Time No Known Allergies Allergy Verified 12/10/16 18:33 Heart Score - HEART Score History: Slightly suspicious EKG: Normal Age: 45-65 Risk factors: 1-2 risk factors Troponin: < normal limit HEART Score: 2 ED Review of Systems ROS: Stated complaint: LT SIDE NUMB/SOB Other details as noted in HPI Comment: All other systems reviewed and negative Constitutional: denies: fever Respiratory: shortness of breath. denies: cough Cardiovascular: chest pain Gastrointestinal: denies: nausea, vomiting Musculoskeletal: other (Denies lower leg pain or swelling) ED Past Medical Hx - Past Medical History Previous Medical History?: Yes Hx Hypertension: Yes Additional medical history: back pain - Surgical History Past Surgical History?: Yes Additional Surgical History: c section - Social History Smoking Status: Current Every Day Smoker Substance Use Type: None - Medications Home Medications: Home Medications Medication Instructions Recorded Confirmed Last Taken Type Cyclobenzaprine [Flexeril 10mg] 10 mg PO TID PRN #30 tablet 12/11/13 Unknown Rx HYDROcodone/APAP 7.5-325 [[place] 1 each PO Q6HR PRN #20 tablet 12/11/13 Unknown Rx 7.5/325 mg] Ibuprofen [Motrin] 600 mg PO Q8H PRN #50 tablet 12/11/13 Unknown Rx Cyclobenzaprine HCl [Flexeril 5 MG 5 mg PO TID PRN #15 tab 07/01/15 Unknown Rx TAB] traMADoL [Ultram 50 MG tab] 50 mg PO Q6HR PRN #20 tablet 07/01/15 Unknown Rx Naproxen [Naprosyn TAB] 500 mg PO BID #20 tablet 09/17/15 Unknown Rx diazePAM [Diazepam] 5 mg PO Q8HR #15 tablet 09/17/15 Unknown Rx Diclofenac Potassium 50 mg PO BID #40 tablet 12/10/16 Unknown Rx tiZANidine [Zanaflex 4mg TAB] 4 mg PO BID #30 tablet 12/10/16 Unknown Rx Ibuprofen [Motrin] 800 mg PO Q8HR PRN #20 tablet 01/23/18 Unknown Rx methOCARBAMOL [Robaxin TAB] 500 mg PO Q6H PRN #15 tablet 01/23/18 Unknown Rx traMADoL [Ultram] 50 mg PO Q6HR PRN #12 tablet 01/23/18 Unknown Rx ALBUTEROL Inhaler(NF) [VENTOLIN 2 puff IH PRN #1 inha 04/17/18 Unknown Rx Inhaler(NF)] Amoxicillin/Potassium Clav 1 each PO BID #14 tablet 04/17/18 Unknown Rx [Augmentin 500-125 Tablet] Loratadine (Nf) [Claritin] 10 mg PO DAILY #30 tablet 04/17/18 Unknown Rx predniSONE [Deltasone] 20 mg PO DAILY #5 tablet 04/17/18 Unknown Rx Albuterol Sulfate [Proair 90 mcg IH Q4HR #1 aer.pow.ba 08/11/19 Unknown Rx Respiclick] Montelukast [Singulair] 10 mg PO QPM #14 tablet 08/11/19 Unknown Rx predniSONE [Deltasone] 50 mg PO ONCE #7 tablet 08/11/19 Unknown Rx ALBUTEROL NEB's [Proventil 0.083% 2.5 mg IH TID PRN #1 box 03/08/20 Unknown Rx NEBS] Naproxen [Naprosyn TAB] 500 mg PO BID PRN #30 tablet 03/08/20 Unknown Rx predniSONE [Deltasone] 50 mg PO QDAY 5 Days #5 tab 03/08/20 Unknown Rx ED Physical Exam - General Limitations: No Limitations General appearance: alert, in no apparent distress - Head Head exam: Present: atraumatic, normocephalic - Eye Eye exam: Present: normal appearance, EOMI - ENT ENT exam: Present: mucous membranes moist - Neck Neck exam: Present: normal inspection - Respiratory Respiratory exam: Present: normal lung sounds bilaterally. Absent: respiratory distress - Cardiovascular Cardiovascular Exam: Present: regular rate, normal rhythm - GI/Abdominal GI/Abdominal exam: Present: soft. Absent: distended, tenderness - Extremities Exam Extremities exam: Present: normal inspection. Absent: pedal edema, calf tenderness - Neurological Exam Neurological exam: Present: alert, oriented X3 - Psychiatric Psychiatric exam: Present: normal affect, normal mood - Skin Skin exam: Present: warm, dry, intact, normal color ED Course Vital Signs 08/12/20 08/12/20 08/12/20 14:36 14:45 15:01 Pulse Rate 79 84 Respiratory 19 18 Rate Blood Pressure 176/110 176/110 O2 Sat by Pulse 96 98 98 Oximetry 08/12/20 15:31 Pulse Rate 73 Respiratory 15 Rate Blood Pressure 167/102 O2 Sat by Pulse 97 Oximetry ED Medical Decision Making - Lab Data Result diagrams: 08/12/20 14:23 08/12/20 14:23 - EKG Data -: EKG Interpreted by [place] EKG shows normal: sinus rhythm, axis, intervals, QRS complexes, ST-T waves Rate: normal - EKG Data Interpretation: no acute changes - Radiology Data Radiology results: report reviewed, image reviewed - Medical Decision Making 55-year-old female presents to ED with chest pain. Patient describes pain as pleuritic, worse with any sort of torso, cough, deep breath. Troponin negative x2. CTA chest negative for any evidence of PE or any other acute abnormality. Patient states she is feeling much better at this time. Blood pressure is improved, currently 159/90 without intervention. Will discharge at this time. Will fax transfer form to [facility] for close cardiology follow-up. Patient advised to follow-up with her PCP Dr. Kumar. Return precautions given - Differential Diagnosis PE, chest wall pain, ACS, pneumonia Critical care attestation.: If time is entered above; I have spent that time in minutes in the direct care of this critically ill patient, excluding procedure time. ED Disposition Clinical Impression: Chest pain Disposition: DC-01 TO HOME OR SELFCARE Is pt being admited?: No Condition: Stable Instructions: Nonspecific Chest Pain, Adult Referrals: PRIMARY CARE, [Primary Care Provider] - 3-5 Days Time of Disposition: 17:16
--- NOTE | 2020-08-12 16:42 | Cat Scan Report ---
CTA CHEST WITH CONTRAST INDICATION / CLINICAL INFORMATION: Chest pain. TECHNIQUE: Axial CT images were obtained through the chest after injection of IV contrast. 3 plane MIP and/or 3D reconstructions were produced. All CT scans at this location are performed using CT dose reduction f or ALARA by means of automated exposure control. COMPARISON: Chest radiograph from the same day. FINDINGS: PULMONARY ARTERIES: No pulmonary emboli. THORACIC AORTA: No significant abnormality. HEART: No significant abnormality. CORONARY ARTERIES: No significant calcification. MEDIASTINUM / LEANNE: No significant abnormality. PLEURA: No pleural effusion. No pneumothorax. LUNGS: No acute air space or interstitial disease. ADDITIONAL FINDINGS: None. UPPER ABDOMEN: No acute findings. SKELETAL STRUCTURES: No significant osseous abnormality. IMPRESSION: 1. No CT evidence for pulmonary embolism. 2. No acute findings. Signer Name: Dedrick Ness MD Signed: 08/12/2020 4:37 PM Workstation Name: [id number]
[2020-08-12 19:21] VITALS: BP 158/92
--- NOTE | 2020-08-14 11:09 | Electrocardiograph Report ---
[facility] Test Date: 2020-08-12 Test Time: 14:04:08 Pat Name: AMAYA SWEENEY Department: Room: Gender: F Pilot Submersible: RADHA : 1965 Requested By: CELENA MCKENZIE Order Number: [id number] Reading MD: Fabián Jimenez Measurements Intervals [place] Rate: 98 P: 58 SD: 150 QRS: 28 QRSD: 71 T: 53 QT: 349 QTc: 446 Interpretive Statements Sinus rhythm Probable left atrial enlargement No previous ECG available for comparison Electronically Signed On 08-14-2020 8:09:00 PDT by Fabián Jimenez
== END 2020-08-12 17:40 | disposition home or self-care (01) ==
LOC: ED 13:47
DX: R07.9 Chest pain, unspecified (principal); I10 Essential (primary) hypertension; F17.200 Nicotine dependence, unspecified, uncomplicated; Z79.899 Other long term (current) drug therapy; Z98.890 Other specified postprocedural states
CPT/HCPCS: 36415; 71045; 71275; 80048; 84484; 85025; 85379; 85610; 85730; 93005; 96374; 99284; J2270; Q9967

== ENCOUNTER 2020-11-06 13:44 | Outpatient (CLI) | payer BC ==
[2020-11-06 14:59] LABS: Hepatitis B Surface Antigen Non-Reactive (Negative); Hepatitis C Virus Antibody Non-Reactive (NonReactive)
== END 2020-11-06 13:45 | disposition home or self-care (01) ==
LOC: LAB 13:44
PROVIDERS: ATTEND Internal Medicine
DX: E72.89 Other specified disorders of amino-acid metabolism (principal)
CPT/HCPCS: 36415; 80074

== ENCOUNTER 2020-11-20 03:47 | Emergency (ER) | payer BC ==
[2020-11-20] MEDS ORDERED: oxyCODONE /ACETAMINOPHEN 5-325MG TAB PO ONE (04:12)
--- NOTE | 2020-11-20 04:32 | Emergency Department Report ---
Upper Extremity - HPI Chief Complaint: Shoulder Injury Stated Complaint: SHOULDER AND NECK PAIN Time Seen by Provider: 11/20/20 03:58 Other History: 55-year-old female presents emergency department with complaint of right shoulder pain. 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 She states that she has a history of a torn rotator cuff and has seen Dr. Russell previously for injections and other therapies. She has had an MRI previously of the right shoulder. Patient states that [employer] she typically works for her shoulder pain. She denies any chest pain or shortness of breath and states she does not have history of previous HI. ED Review of Systems ROS: Stated complaint: SHOULDER AND NECK PAIN Other details as noted in HPI Constitutional: denies: chills, fever Eyes: denies: eye discharge ENT: denies: dental pain Respiratory: no symptoms reported. denies: shortness of breath Cardiovascular: denies: chest pain Endocrine: no symptoms reported Gastrointestinal: denies: abdominal pain, nausea, vomiting Genitourinary: denies: dysuria Musculoskeletal: arthralgia Skin: denies: rash Neurological: denies: headache, weakness Psychiatric: denies: anxiety, depression Hematological/Lymphatic: denies: easy bleeding ED Past Medical Hx - Past Medical History Previous Medical History?: Yes Hx Hypertension: Yes Additional medical history: back pain - Surgical History Past Surgical History?: Yes Additional Surgical History: c section - Social History Smoking Status: Current Every Day Smoker Substance Use Type: None - Medications Home Medications: Home Medications Medication Instructions Recorded Confirmed Last Taken Type Cyclobenzaprine [Flexeril 10mg] 10 mg PO TID PRN #30 tablet 12/11/13 Unknown Rx HYDROcodone/APAP 7.5-325 [Archer 1 each PO Q6HR PRN #20 tablet 12/11/13 Unknown Rx 7.5/325 mg] Ibuprofen [Motrin] 600 mg PO Q8H PRN #50 tablet 12/11/13 Unknown Rx Cyclobenzaprine HCl [Flexeril 5 MG 5 mg PO TID PRN #15 tab 07/01/15 Unknown Rx TAB] traMADoL [Ultram 50 MG tab] 50 mg PO Q6HR PRN #20 tablet 07/01/15 Unknown Rx Naproxen [Naprosyn TAB] 500 mg PO BID #20 tablet 09/17/15 Unknown Rx diazePAM [Diazepam] 5 mg PO Q8HR #15 tablet 09/17/15 Unknown Rx Diclofenac Potassium 50 mg PO BID #40 tablet 12/10/16 Unknown Rx tiZANidine [Zanaflex 4mg TAB] 4 mg PO BID #30 tablet 12/10/16 Unknown Rx Ibuprofen [Motrin] 800 mg PO Q8HR PRN #20 tablet 01/23/18 Unknown Rx methOCARBAMOL [Robaxin TAB] 500 mg PO Q6H PRN #15 tablet 01/23/18 Unknown Rx traMADoL [Ultram] 50 mg PO Q6HR PRN #12 tablet 01/23/18 Unknown Rx ALBUTEROL Inhaler(NF) [VENTOLIN 2 puff IH PRN #1 inha 04/17/18 Unknown Rx Inhaler(NF)] Amoxicillin/Potassium Clav 1 each PO BID #14 tablet 04/17/18 Unknown Rx [Augmentin 500-125 Tablet] Loratadine (Nf) [Claritin] 10 mg PO DAILY #30 tablet 04/17/18 Unknown Rx predniSONE [Deltasone] 20 mg PO DAILY #5 tablet 04/17/18 Unknown Rx Albuterol Sulfate [Proair 90 mcg IH Q4HR #1 aer.[email or web address] 08/11/19 Unknown Rx Respiclick] Montelukast [Singulair] 10 mg PO QPM #14 tablet 08/11/19 Unknown Rx predniSONE [Deltasone] 50 mg PO ONCE #7 tablet 08/11/19 Unknown Rx ALBUTEROL NEB's [Proventil 0.083% 2.5 mg IH TID PRN #1 box 03/08/20 Unknown Rx NEBS] Naproxen [Naprosyn TAB] 500 mg PO BID PRN #30 tablet 03/08/20 Unknown Rx predniSONE [Deltasone] 50 mg PO QDAY 5 Days #5 tab 03/08/20 Unknown Rx oxyCODONE /ACETAMINOPHEN [Percocet 1 tab PO Q6HR PRN 3 Days #12 tablet 11/20/20 Unknown Rx 5/325] Upper Extremity Exam - Exam General: Vital signs noted. No distress. Alert and acting appropriately. Head and Torso: Yes Back Tenderness (Tenderness to the right thoracic paraspinal area), No HEENT Abnormality, No Neck Tenderness, No Chest/Lungs Abnormality, No Abdominal Tenderness Shoulder Exam: Yes Shoulder Tenderness (Right side), No Clavicle Tenderness, No Normal Range of Motion in Shoulder (Decreased range of motion noted to the right shoulder), No Shoulder Deformity, No AC Joint Tenderness Arm Exam: No Arm/Humerus Tenderness, No Arm Deformity Elbow: No Elbow Tenderness, No Normal Range of Motion in Elbow, No Elbow Deformity Forearm: No Forearm Tenderness, No Forearm Deformity, No Pain with Pronation, No Pain with Supination Wrist: No Wrist Tenderness, No Normal ROM in Wrist, No Wrist Deformity, No Snuffbox Tenderness, No Pain with Axial Thumb Compression Hand: No Hand Tenderness CMS Exam: Yes Normal Distal Pulses, Yes Normal Capillary Refill, Yes Normal Distal Sensation, No Broken Skin ED Course Vital Signs 11/20/20 11/20/20 03:52 04:26 Temperature 98.2 F Pulse Rate 79 Respiratory 16 16 Rate Blood Pressure 151/88 [Left] O2 Sat by Pulse 97 Oximetry - Reevaluation(s) Reevaluation #1: 11/20/20 06:15 Improved, plan for DC. ED Medical Decision Making - EKG Data -: EKG Interpreted by Md EKG shows normal: sinus rhythm Rate: normal - EKG Data Interpretation: normal EKG - Radiology Data Radiology results: report reviewed, image reviewed - Medical Decision Making 55-year-old female presents emergency department plan right shoulder pain. Patient has had previous visits for similar. 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 Discussed with patient she does not have cardiac risk factors plan to evaluate patient with a's chest and right shoulder x-ray I will give patient a pain pill. Patient improved patient likely to be discharged if she continues with pain she may need additional pain medicine or further evaluation with additional testing. Critical care attestation.: If time is entered above; I have spent that time in minutes in the direct care of this critically ill patient, excluding procedure time. ED Disposition Clinical Impression: Right shoulder strain Disposition: DC-01 TO HOME OR SELFCARE Is pt being admited?: No Does the pt Need Aspirin: No Condition: Stable Instructions: Muscle Strain, [id number] Prescriptions: oxyCODONE /ACETAMINOPHEN [Percocet 5/325] 1 tab PO Q6HR PRN 3 Days #12 tablet PRN Reason: Pain Referrals: RUDDY RUSSELL MD [Staff Physician] - 3-5 Days Forms: Work/School Release Form(ED) Time of Disposition: 06:33
[2020-11-20 05:56] VITALS: BP 125/76
--- NOTE | 2020-11-22 17:42 | Electrocardiograph Report ---
[facility] Test Date: 2020-11-20 Test Time: 04:31:57 Pat Name: AMAYA SWEENEY Department: Room: Gender: F Supervisor Landscape: IVANIA : 1965 Requested By: DOLLY BERG Order Number: [id number] Reading MD: Jennifer Eduardo Measurements Intervals [place] Rate: 69 P: 58 PA: 156 QRS: 22 QRSD: 71 T: 28 QT: 390 QTc: 418 Interpretive Statements Sinus rhythm Compared to ECG 08/12/2020 14:04:08 No significant changes Electronically Signed On 11-22-2020 17:41:40 EDT by Jennifer Eduardo
== END 2020-11-20 06:47 | disposition home or self-care (01) ==
LOC: ED 03:47
DX: S46.811A Strain of other muscles, fascia and tendons at shoulder and upper arm level, right arm, initial encounter (principal); M54.2 Cervicalgia; I10 Essential (primary) hypertension; F17.200 Nicotine dependence, unspecified, uncomplicated; Z98.890 Other specified postprocedural states; Z79.899 Other long term (current) drug therapy; X50.1XXA Overexertion from prolonged static or awkward postures, initial encounter; Y93.89 Activity, other specified; Y92.89 Other specified places as the place of occurrence of the external cause; Y99.8 Other external cause status
CPT/HCPCS: 71045; 93005; 99283

== ENCOUNTER 2020-12-04 08:45 | Emergency (ER) | payer BC ==
[2020-12-04 09:58] LABS: Basophils % (Auto) 0.5 % (0.0-1.8); Eosinophils # (Auto) 0.1 K/mm3 (0.0-0.4); Hematocrit 44.5 % (30.3-42.9); Hemoglobin 15.1 gm/dl (10.1-14.3); Lymphocytes # (Auto) 2.3 K/mm3 (1.2-5.4); Lymphocytes % (Auto) 34.8 % (13.4-35.0); Mean Corpuscular HGB Conc 34 % (30-34); Mean Corpuscular Volume 93 fl (79-97); Monocytes # (Auto) 0.4 K/mm3 (0.0-0.8); Monocytes % (Auto) 6.4 % (0.0-7.3); Platelet Count 277 K/mm3 (140-440); Red Blood Count 4.79 M/mm3 (3.65-5.03); Red Cell Distribution Width 13.1 % (13.2-15.2)
[2020-12-04 10:20] LABS: Alanine Aminotransferase 7 units/L (7-56); Albumin 4.3 g/dL (3.9-5); Blood Urea Nitrogen 12 mg/dL (7-17); Calcium 10.1 mg/dL (8.4-10.2); Hemolysis Index 5
[2020-12-04 10:22] LABS: BUN/Creatinine Ratio 17
[2020-12-04 11:51] LABS: Bilirubin,Urine NEG (Negative); Blood,Urine MOD (Negative); Color,Urine Yellow (Yellow); Hyaline Casts,Urine 1 /LPF; Mucus,Urine 1+ /HPF; Protein,Urine <15 mg/dL mg/dL (Negative); Urobilinogen,Urine < 2.0 mg/dL (<2.0)
--- NOTE | 2020-12-04 12:23 | Cat Scan Report ---
CT ABDOMEN AND PELVIS WITH CONTRAST INDICATION / CLINICAL INFORMATION: RLQ abd pain and right lower back pain 100 ML OMNI 300 . TECHNIQUE: Axial CT images were obtained through the abdomen and pelvis after 100 cc IV contrast. Sagittal and c oronal reformatted images. All CT scans at this location are performed using CT dose reduction for AL BAILEE by means of automated exposure control. COMPARISON: None available. FINDINGS: LOWER CHEST: No significant abnormality. LIVER: A few scattered simple liver cysts are identified with the largest measuring 2.3 cm in the inf erior right hepatic lobe. No parenchymal liver disease or liver mass. GALLBLADDER: No significant abnormality. BILE DUCTS: No significant abnormality. PANCREAS: No significant abnormality. SPLEEN: No significant abnormality. ADRENALS: No significant abnormality. RIGHT KIDNEY and URETER: No significant abnormality. 1 cm simple cyst near the inferior pole is noted . LEFT KIDNEY and URETER: No significant abnormality. Subcentimeter simple cyst near mid pole is noted. STOMACH and SMALL BOWEL: No significant abnormality. COLON: There is moderate fecal retention in the right hemicolon. No evidence for obstruction, mass or inflammation. APPENDIX: No significant abnormality. PERITONEUM: No free fluid. No free air. No fluid collection. LYMPH NODES: No significant adenopathy. AORTA and ARTERIES: No significant abnormality. IVC and VEINS: No significant abnormality. URINARY BLADDER: No significant abnormality. REPRODUCTIVE ORGANS: A 3.6 cm partially calcified fibroid is noted in the left lateral uterine wall w hich appears to have a submucosal location. The adnexa are unremarkable. ADDITIONAL FINDINGS: None. SKELETAL SYSTEM: Mild degenerative disc disease and facet arthropathy is noted in the lumbar spine. N o acute osseous abnormality. IMPRESSION: No acute inflammatory process is appreciated. Moderate fecal retention in the right hemicolon. Uterine fibroid as described. Few scattered simple liver and renal cysts. Mild degenerative changes in the lumbar spine. Signer Name: Steve Ragsdale Jr, MD Signed: 12/04/2020 12:19 PM Workstation Name: [id number]
--- NOTE | 2020-12-04 13:10 | Emergency Department Report ---
ED General Adult HPI - General Chief complaint: Abdominal Pain Stated complaint: MUSCLE SPASM, BACK PAIN Time Seen by Provider: 12/04/20 11:20 Source: patient Mode of arrival: Ambulatory Limitations: No Limitations - History of Present Illness Initial comments: Patient is a 55-year-old female presents emergency room complaints of right lower back pain and right lower abdominal pain that exacerbated over the last 4 days. She states that she has chronic pain. She states her pain is worse with movement. Patient states that she was evaluated in the emergency department earlier this month due to her issues with her chronic pain and she was given a p rescription for medication but she has not followed up with primary care or orthopedic. She denies any fever, nausea, vomiting, diarrhea, urinary symptoms, abnormal vaginal discharge, hematochezia, melena, hematemesis, numbness, weakness, bowel or bladder incontinence. Past medical history of hypertension. No allergies to medications. - Related Data Previous Rx's Medication Instructions Recorded Last Taken Type Cyclobenzaprine [Flexeril 10mg] 10 mg PO TID PRN #30 tablet 12/11/13 Unknown Rx HYDROcodone/APAP 7.5-325 [[place] 1 each PO Q6HR PRN #20 tablet 12/11/13 Unknown Rx 7.5/325 mg] Ibuprofen [Motrin] 600 mg PO Q8H PRN #50 tablet 12/11/13 Unknown Rx Cyclobenzaprine HCl [Flexeril 5 MG 5 mg PO TID PRN #15 tab 07/01/15 Unknown Rx TAB] traMADoL [Ultram 50 MG tab] 50 mg PO Q6HR PRN #20 tablet 07/01/15 Unknown Rx Naproxen [Naprosyn TAB] 500 mg PO BID #20 tablet 09/17/15 Unknown Rx diazePAM [Diazepam] 5 mg PO Q8HR #15 tablet 09/17/15 Unknown Rx Diclofenac Potassium 50 mg PO BID #40 tablet 12/10/16 Unknown Rx tiZANidine [Zanaflex 4mg TAB] 4 mg PO BID #30 tablet 12/10/16 Unknown Rx Ibuprofen [Motrin] 800 mg PO Q8HR PRN #20 tablet 01/23/18 Unknown Rx methOCARBAMOL [Robaxin TAB] 500 mg PO Q6H PRN #15 tablet 01/23/18 Unknown Rx traMADoL [Ultram] 50 mg PO Q6HR PRN #12 tablet 01/23/18 Unknown Rx ALBUTEROL Inhaler(NF) [VENTOLIN 2 puff IH PRN #1 inha 04/17/18 Unknown Rx Inhaler(NF)] Amoxicillin/Potassium Clav 1 each PO BID #14 tablet 04/17/18 Unknown Rx [Augmentin 500-125 Tablet] Loratadine (Nf) [Claritin] 10 mg PO DAILY #30 tablet 04/17/18 Unknown Rx predniSONE [Deltasone] 20 mg PO DAILY #5 tablet 04/17/18 Unknown Rx Albuterol Sulfate [Proair 90 mcg IH Q4HR #1 aer.pow.ba 08/11/19 Unknown Rx Respiclick] Montelukast [Singulair] 10 mg PO QPM #14 tablet 08/11/19 Unknown Rx predniSONE [Deltasone] 50 mg PO ONCE #7 tablet 08/11/19 Unknown Rx ALBUTEROL NEB's [Proventil 0.083% 2.5 mg IH TID PRN #1 box 03/08/20 Unknown Rx NEBS] Naproxen [Naprosyn TAB] 500 mg PO BID PRN #30 tablet 03/08/20 Unknown Rx predniSONE [Deltasone] 50 mg PO QDAY 5 Days #5 tab 03/08/20 Unknown Rx oxyCODONE /ACETAMINOPHEN [Percocet 1 tab PO Q6HR PRN 3 Days #12 tablet 11/20/20 Unknown Rx 5/325] Docusate Sodium [Colace] 100 mg PO BID PRN #30 capsule 12/04/20 Unknown Rx Menthol/Camphor [[place] 1 applicatio TP BID #18 oint...g. 12/04/20 Unknown Rx Ointment] Naproxen [EC-Naprosyn] 500 mg PO BID PRN #20 tablet. 12/04/20 Unknown Rx Polyethylene Glycol 3350 [Miralax] 17 gm PO DAILY PRN #1 powder 12/04/20 Unknown Rx methOCARBAMOL [Robaxin TAB] 500 mg PO BID PRN #20 tab 12/04/20 Unknown Rx Allergies Allergy/AdvReac Type Severity Reaction Status Date / Time No Known Allergies Allergy Verified 12/10/16 18:33 ED Review of Systems ROS: Stated complaint: MUSCLE SPASM, BACK PAIN Other details as noted in HPI Comment: All other systems reviewed and negative ED Past Medical Hx - Past Medical History Previous Medical History?: Yes Hx Hypertension: Yes Additional medical history: back pain - Surgical History Past Surgical History?: Yes Additional Surgical History: c section - Social History Smoking Status: Current Every Day Smoker Substance Use Type: None - Medications Home Medications: Home Medications Medication Instructions Recorded Confirmed Last Taken Type Cyclobenzaprine [Flexeril 10mg] 10 mg PO TID PRN #30 tablet 12/11/13 Unknown Rx HYDROcodone/APAP 7.5-325 [[place] 1 each PO Q6HR PRN #20 tablet 12/11/13 Unknown Rx 7.5/325 mg] Ibuprofen [Motrin] 600 mg PO Q8H PRN #50 tablet 12/11/13 Unknown Rx Cyclobenzaprine HCl [Flexeril 5 MG 5 mg PO TID PRN #15 tab 07/01/15 Unknown Rx TAB] traMADoL [Ultram 50 MG tab] 50 mg PO Q6HR PRN #20 tablet 07/01/15 Unknown Rx Naproxen [Naprosyn TAB] 500 mg PO BID #20 tablet 09/17/15 Unknown Rx diazePAM [Diazepam] 5 mg PO Q8HR #15 tablet 09/17/15 Unknown Rx Diclofenac Potassium 50 mg PO BID #40 tablet 12/10/16 Unknown Rx tiZANidine [Zanaflex 4mg TAB] 4 mg PO BID #30 tablet 12/10/16 Unknown Rx Ibuprofen [Motrin] 800 mg PO Q8HR PRN #20 tablet 01/23/18 Unknown Rx methOCARBAMOL [Robaxin TAB] 500 mg PO Q6H PRN #15 tablet 01/23/18 Unknown Rx traMADoL [Ultram] 50 mg PO Q6HR PRN #12 tablet 01/23/18 Unknown Rx ALBUTEROL Inhaler(NF) [VENTOLIN 2 puff IH PRN #1 inha 04/17/18 Unknown Rx Inhaler(NF)] Amoxicillin/Potassium Clav 1 each PO BID #14 tablet 04/17/18 Unknown Rx [Augmentin 500-125 Tablet] Loratadine (Nf) [Claritin] 10 mg PO DAILY #30 tablet 04/17/18 Unknown Rx predniSONE [Deltasone] 20 mg PO DAILY #5 tablet 04/17/18 Unknown Rx Albuterol Sulfate [Proair 90 mcg IH Q4HR #1 aer.pow.ba 03/25/20 Unknown Rx Respiclick] Montelukast [Singulair] 10 mg PO QPM #14 tablet 08/11/19 Unknown Rx predniSONE [Deltasone] 50 mg PO ONCE #7 tablet 08/11/19 Unknown Rx ALBUTEROL NEB's [Proventil 0.083% 2.5 mg IH TID PRN #1 box 03/08/20 Unknown Rx NEBS] Naproxen [Naprosyn TAB] 500 mg PO BID PRN #30 tablet 03/08/20 Unknown Rx predniSONE [Deltasone] 50 mg PO QDAY 5 Days #5 tab 03/08/20 Unknown Rx oxyCODONE /ACETAMINOPHEN [Percocet 1 tab PO Q6HR PRN 3 Days #12 tablet 11/20/20 Unknown Rx 5/325] Docusate Sodium [Colace] 100 mg PO BID PRN #30 capsule 12/04/20 Unknown Rx Menthol/Camphor [[place] 1 applicatio TP BID #18 oint...g. 12/04/20 Unknown Rx Ointment] Naproxen [EC-Naprosyn] 500 mg PO BID PRN #20 tablet.dr 12/04/20 Unknown Rx Polyethylene Glycol 3350 [Miralax] 17 gm PO DAILY PRN #1 powder 12/04/20 Unknown Rx methOCARBAMOL [Robaxin TAB] 500 mg PO BID PRN #20 tab 12/04/20 Unknown Rx ED Physical Exam - General Limitations: No Limitations General appearance: alert, in no apparent distress - Head Head exam: Present: atraumatic, normocephalic - Eye Eye exam: Present: normal appearance - ENT ENT exam: Present: mucous membranes moist - Neck Neck exam: Present: normal inspection, full ROM. Absent: tenderness, meningismus - Respiratory Respiratory exam: Present: normal lung sounds bilaterally. Absent: respiratory distress, wheezes, rales, rhonchi, stridor, chest wall tenderness, accessory muscle use, decreased breath sounds, prolonged expiratory - Cardiovascular Cardiovascular Exam: Present: regular rate, normal rhythm, normal heart sounds. Absent: systolic murmur, diastolic murmur, rubs, gallop - GI/Abdominal GI/Abdominal exam: Present: soft, tenderness (mild RLQ), normal bowel sounds. Absent: distended, guarding, rebound, rigid - Back Exam Back exam: Present: normal inspection, full ROM, paraspinal tenderness (right sided lumbar paraspinal muscular ttp, no midline C-spine, T-spine or L-spine ttp, no step offs, no deformities). Absent: CVA tenderness (R), CVA tenderness (L), vertebral tenderness - Neurological Exam Neurological exam: Present: alert, oriented X3, CN II-XII intact, normal gait. Absent: motor sensory deficit - Psychiatric Psychiatric exam: Present: normal affect, normal mood - Skin Skin exam: Present: warm, dry, intact ED Course Vital Signs 12/04/20 12/04/20 09:40 13:50 Temperature 98.4 F Pulse Rate 105 H 90 Respiratory 16 12 Rate Blood Pressure 166/103 138/89 [Right] O2 Sat by Pulse 96 96 Oximetry ED Medical Decision Making - Lab Data Result diagrams: 12/04/20 09:48 12/04/20 09:48 Lab Results 12/04/20 12/04/20 12/04/20 Range/Units 09:48 09:48 11:23 WBC 6.5 (4.5-11.0) K/mm3 RBC 4.79 (3.65-5.03) M/mm3 Hgb 15.1 H (10.1-14.3) gm/dl Hct 44.5 H (30.3-42.9) % MCV 93 (79-97) fl MCH 31 (28-32) pg MCHC 34 (30-34) % RDW 13.1 L (13.2-15.2) % Plt Count 277 (140-440) K/mm3 Lymph % (Auto) 34.8 (13.4-35.0) % Early % (Auto) 6.4 (0.0-7.3) % Eos % (Auto) 2.0 (0.0-4.3) % Baso % (Auto) 0.5 (0.0-1.8) % Lymph # (Auto) 2.3 (1.2-5.4) K/mm3 Early # (Auto) 0.4 (0.0-0.8) K/mm3 Eos # (Auto) 0.1 (0.0-0.4) K/mm3 Baso # (Auto) 0.0 (0.0-0.1) K/mm3 Seg Neutrophils % 56.3 (40.0-70.0) % Seg Neutrophils # 3.7 (1.8-7.7) K/mm3 Sodium 137 (137-145) mmol/L Potassium 3.5 L (3.6-5.0) mmol/L Chloride 99.1 (98-107) mmol/L Carbon Dioxide 29 (22-30) mmol/L Anion Gap 12 mmol/L BUN 12 (7-17) mg/dL Creatinine 0.7 (0.6-1.2) mg/dL Estimated GFR > 60 ml/min BUN/Creatinine Ratio 17 % Glucose 95 (65-100) mg/dL Calcium 10.1 (8.4-10.2) mg/dL Total Bilirubin 0.30 (0.1-1.2) mg/dL AST 11 (5-40) units/L ALT 7 (7-56) units/L Alkaline Phosphatase 87 (35-129) units/L Total Protein 7.9 (6.3-8.2) g/dL Albumin 4.3 (3.9-5) g/dL Albumin/Globulin Ratio 1.2 % Lipase 15 (13-60) units/L Urine Color (Yellow) Urine Turbidity (Clear) Urine pH (5.0-7.0) Ur Specific [place] (1.003-1.030) Urine Protein (Negative) mg/dL Urine Glucose (UA) (Negative) mg/dL Urine Ketones (Negative) mg/dL Urine Blood (Negative) Urine Nitrite (Negative) Urine Bilirubin (Negative) Urine Urobilinogen (<2.0) mg/dL Ur Leukocyte Esterase (Negative) Urine WBC (Auto) (0.0-6.0) /HPF Urine RBC (Auto) (0.0-6.0) /HPF U Epithel Cells (Auto) (0-13.0) /HPF Hyaline Casts /LPF Urine Mucus /HPF // Range/Units Unknown WBC (4.5-11.0) K/mm3 RBC (3.65-5.03) M/mm3 Hgb (10.1-14.3) gm/dl Hct (30.3-42.9) % MCV (79-97) fl MCH (28-32) pg MCHC (30-34) % RDW (13.2-15.2) % Plt Count (140-440) K/mm3 Lymph % (Auto) (13.4-35.0) % Early % (Auto) (0.0-7.3) % Eos % (Auto) (0.0-4.3) % Baso % (Auto) (0.0-1.8) % Lymph # (Auto) (1.2-5.4) K/mm3 Early # (Auto) (0.0-0.8) K/mm3 Eos # (Auto) (0.0-0.4) K/mm3 Baso # (Auto) (0.0-0.1) K/mm3 Seg Neutrophils % (40.0-70.0) % Seg Neutrophils # (1.8-7.7) K/mm3 Sodium (137-145) mmol/L Potassium (3.6-5.0) mmol/L Chloride (98-107) mmol/L Carbon Dioxide (22-30) mmol/L Anion Gap mmol/L BUN (7-17) mg/dL Creatinine (0.6-1.2) mg/dL Estimated GFR ml/min BUN/Creatinine Ratio % Glucose (65-100) mg/dL Calcium (8.4-10.2) mg/dL Total Bilirubin (0.1-1.2) mg/dL AST (5-40) units/L ALT (7-56) units/L Alkaline Phosphatase (35-129) units/L Total Protein (6.3-8.2) g/dL Albumin (3.9-5) g/dL Albumin/Globulin Ratio % Lipase (13-60) units/L Urine Color Yellow (Yellow) Urine Turbidity Slightly-cloudy (Clear) Urine pH 5.0 (5.0-7.0) Ur Specific [place] 1.018 (1.003-1.030) Urine Protein <15 mg/dl (Negative) mg/dL Urine Glucose (UA) Neg (Negative) mg/dL Urine Ketones Neg (Negative) mg/dL Urine Blood Mod (Negative) Urine Nitrite Neg (Negative) Urine Bilirubin Neg (Negative) Urine Urobilinogen < 2.0 (<2.0) mg/dL Ur Leukocyte Esterase Tr (Negative) Urine WBC (Auto) 3.0 (0.0-6.0) /HPF Urine RBC (Auto) 5.0 (0.0-6.0) /HPF U Epithel Cells (Auto) 9.0 (0-13.0) /HPF Hyaline Casts 1 /LPF Urine Mucus 1+ /HPF Vital Signs 12/04/20 12/04/20 09:40 13:50 Temperature 98.4 F Pulse Rate 105 H 90 Respiratory 16 12 Rate Blood Pressure 166/103 138/89 [Right] O2 Sat by Pulse 96 96 Oximetry - Radiology Data Radiology results: report reviewed Ordering Physician: DIMPLE RUBIO Date of Service: 12/04/20 Procedure(s): CT abdomen pelvis w con Accession Number(s): [id number] cc: DIMPLE RUBIO CT ABDOMEN AND PELVIS WITH CONTRAST INDICATION / CLINICAL INFORMATION: RLQ abd pain and right lower back pain 100 ML OMNI 300 . TECHNIQUE: Axial CT images were obtained through the abdomen and pelvis after 100 cc IV contrast. Sagittal and coronal reformatted images. All CT scans at this location are performed using CT dose reduction for ALARA by means of automated exposure control. COMPARISON: None available. FINDINGS: LOWER CHEST: No significant abnormality. LIVER: A few scattered simple liver cysts are identified with the largest measuring 2.3 cm in the inferior right hepatic lobe. No parenchymal liver disease or liver mass. GALLBLADDER: No significant abnormality. BILE DUCTS: No significant abnormality. PANCREAS: No significant abnormality. SPLEEN: No significant abnormality. ADRENALS: No significant abnormality. RIGHT KIDNEY and URETER: No significant abnormality. 1 cm simple cyst near the inferior pole is noted. LEFT KIDNEY and URETER: No significant abnormality. Subcentimeter simple cyst near mid pole is noted. STOMACH and SMALL BOWEL: No significant abnormality. COLON: There is moderate fecal retention in the right hemicolon. No evidence for obstruction, mass or inflammation. APPENDIX: No significant abnormality. PERITONEUM: No free fluid. No free air. No fluid collection. LYMPH NODES: No significant adenopathy. AORTA and ARTERIES: No significant abnormality. IVC and VEINS: No significant abnormality. URINARY BLADDER: No significant abnormality. REPRODUCTIVE ORGANS: A 3.6 cm partially calcified fibroid is noted in the left lateral uterine wall which appears to have a submucosal location. The adnexa are unremarkable. ADDITIONAL FINDINGS: None. SKELETAL SYSTEM: Mild degenerative disc disease and facet arthropathy is noted in the lumbar spine. No acute osseous abnormality. IMPRESSION: No acute inflammatory process is appreciated. Moderate fecal retention in the right hemicolon. Uterine fibroid as described. Few scattered simple liver and renal cysts. Mild degenerative changes in the lumbar spine. Signer Name: Steve Ragsdale Jr, MD Signed: 12/04/2020 12:19 PM Workstation Name: [id number] Transcribed By: JOSUÉ Dictated By: STEVE RAGSDALE JR, MD Electronically Authenticated By: STEVE RAGSDALE JR, MD Signed Date/Time: 12/04/20 1219 DD/ 1215 TD/TT: Print Cancel - Medical Decision Making Patient is a 55-year-old female presents emergency room complaints of right lower back pain and right lower abdominal pain that exacerbated over the last 4 days. She states that she has chronic pain. She states her pain is worse with movement. Patient states that she was evaluated in the emergency department e[place] this month due to her issues with her chronic pain and she was given a prescription for medication but she has not followed up with primary care or orthopedic. She denies any fever, nausea, vomiting, diarrhea, urinary symptoms, abnormal vaginal discharge, hematochezia, melena, hematemesis, numbness, weakness, bowel or bladder incontinence. Past medical history of hypertension. No allergies to medications. Initial vitals with elevated heart rate and blood pressure which improved upon repeat. On exam patient has mild right lower quadrant tenderness palpation, right lumbar paraspinal muscular tenderness palpation, no midline C-spine, T-spine, L-spine dislocation, no step-offs, no deformities, no focal neuro deficits, no peritoneal signs. Labs are stable. UA is within normal limits. CT abdomen pelvis with IV contrast: No acute inflammatory process is appreciated. Moderate fecal retention in the right hemicolon. Uterine fibroid as described. Few scattered simple liver and renal cysts. Mild degenerative changes in the lumbar spine. Discussed the results with patient answer questions. Patient given prescription for medications. Patient given medications while in the emergency department as she did not drive with improvement of her symptoms. Discussed the importance of outpatient follow-up. Advised patient Please take medication as prescribed. Follow-up with your primary care doctor. Follow-up with your orthopedic doctor. Increase your water and fiber intake. Return to emergency room for any new or worsening symptoms. May use ice pack, heating pad, rest, epsom salt bath. Do not use heat or ice while using [place] balm. - Differential Diagnosis Appendicitis, nephrolithiasis, pyelonephritis, UTI, muscle strain, bulging Critical care attestation.: If time is entered above; I have spent that time in minutes in the direct care of this critically ill patient, excluding procedure time. ED Disposition Clinical Impression: Abdominal pain Qualifiers: Abdominal location: right lower quadrant Qualified Code(s): R10.31 - Right lower quadrant pain Lower back pain Qualifiers: Chronicity: acute Back pain laterality: right Sciatica presence: without sciatica Qualified Code(s): M54.5 - Low back pain Constipation Qualifiers: Constipation type: unspecified constipation type Qualified Code(s): K59.00 - Constipation, unspecified Uterine fibroid Qualifiers: Uterine leiomyoma location: unspecified location Qualified Code(s): D25.9 - Leiomyoma of uterus, unspecified DDD (degenerative disc disease) Qualifiers: Spinal region: lumbar Qualified Code(s): M51.36 - Other intervertebral disc degeneration, lumbar region Disposition: TO HOME OR SELFCARE Is pt being admited?: No Does the pt Need Aspirin: No Condition: Stable Instructions: Uterine Fibroids, Constipation, Adult, Degenerative Disk Disease, Abdominal Pain (ED) Additional Instructions: Please take medication as prescribed. Follow-up with your primary care doctor. Follow-up with your orthopedic doctor. Increase your water and fiber intake. Return to emergency room for any new or worsening symptoms. May use ice pack, heating pad, rest, epsom salt bath. Do not use heat or ice while using [place] balm. Prescriptions: Docusate Sodium [Colace] 100 mg PO BID PRN #30 capsule PRN Reason: constipation Naproxen [EC-Naprosyn] 500 mg PO BID PRN #20 tablet.dr PRN Reason: pain Polyethylene Glycol 3350 [Miralax] 17 gm PO DAILY PRN #1 powder PRN Reason: constipation methOCARBAMOL [Robaxin TAB] 500 mg PO BID PRN #20 tab PRN Reason: muscle spasm/pain Menthol/Camphor [[place] Ointment] 1 applicatio TP BID #18 oint...g. Referrals: your, primary care doctor [Other] - 3-5 Days RUDDY MILLARD MD [Staff Physician] - 3-5 Days Forms: Work/School Release Form(ED) Time of Disposition: 13:16 Print Language: YAKUT
[2020-12-04] MEDS ORDERED: KETOROLAC 30 MG/1 ML INJ IV ONE (13:19)
[2020-12-04] MEDS ORDERED: CYCLOBENZAPRINE 10 MG TAB PO ONE (13:19)
[2020-12-04 13:53] VITALS: BP 138/89
== END 2020-12-04 13:50 | disposition home or self-care (01) ==
LOC: ED 08:45
DX: R10.31 Right lower quadrant pain (principal); M54.5 Low back pain; I10 Essential (primary) hypertension; F17.200 Nicotine dependence, unspecified, uncomplicated; Z98.890 Other specified postprocedural states; Z79.899 Other long term (current) drug therapy
CPT/HCPCS: 36415; 74177; 80053; 81001; 83690; 85025; 96374; 99284; J1885; Q9967

== ENCOUNTER 2021-07-03 12:22 | Outpatient (CLI) | payer BC ==
[2021-07-03 13:18] LABS: Hematocrit 43.2 % (30.3-42.9); Hemoglobin 14.2 gm/dl (10.1-14.3); Mean Corpuscular HGB Conc 33 % (30-34); Mean Corpuscular Volume 92 fl (79-97); Platelet Count 231 K/mm3 (140-440); Red Blood Count 4.67 M/mm3 (3.65-5.03); Red Cell Distribution Width 13.9 % (13.2-15.2)
[2021-07-03 13:39] LABS: Alanine Aminotransferase 19 units/L (7-56); Albumin 4.4 g/dL (3.9-5); Blood Urea Nitrogen 16 mg/dL (7-17); Calcium 9.3 mg/dL (8.4-10.2); Chol/HDL Ratio 2.95 %; HDL Cholesterol 73 mg/dL (40-59); Hemolysis Index 6; LDL Cholesterol,Direct 134 mg/dL (50-130)
[2021-07-03 14:19] LABS: BUN/Creatinine Ratio 23
== END 2021-07-03 12:23 | disposition home or self-care (01) ==
LOC: LAB 12:22
PROVIDERS: ATTEND Internal Medicine
DX: Z00.00 Encounter for general adult medical examination without abnormal findings (principal); R53.83 Other fatigue; I10 Essential (primary) hypertension; E78.2 Mixed hyperlipidemia; E55.9 Vitamin D deficiency, unspecified; R73.03 Prediabetes
CPT/HCPCS: 36415; 80053; 80061; 82306; 83036; 84443; 85027